=== PATIENT | male | born 1995 | race Caucasian/White ===

== ENCOUNTER 2022-05-30 23:10 | Emergency (ER) | payer BC ==
[~2022-05-30] VITALS: Ht 177.8 cm; Wt 106.6 kg
--- NOTE | 2022-05-30 23:52 | NUR ---
Pt amb to exam room, rodger miller. A&O x'4.
[2022-05-30 23:59] VITALS: BP 128/73
[2022-05-31] MEDS ORDERED: ZOFRAN ODT SL STA
--- NOTE | 2022-05-31 00:12 | ER.PDOC ---
General Chief Complaint: Head Injury Stated Complaint: HEAD INJURY Time seen by MD: 23:33 Source: patient Exam Limitations: no limitations History of Present Illness Initial Comments Patient is a 27-year-old male with no reported past medical history who presents about an hour after a rodeo incident where he injured his head. Patient states that he was thrown off a bull and he landed and hit his head mostly on the right occipital region patient states that he never lost consciousness but did have some nausea and when he stood up he was very dizzy and could not walk straight. Patient denies any other injury or pain elsewhere. Patient states that he has a sore pain on the right occipital region of his head that does not radiate is made worse with palpation and better when nothing is touching it. Patient denies any vomiting but again does have the associated symptoms of mild nausea. History as above Meds and allergies reviewed Past Medical History Medical History: no pertinent history Family History Significant Family History: no pertinent family hx Social History Smoking: non-smoker Alcohol Use: none Drug Use: none Reviewed Nursing Reviewed: Vital Signs, Abn. Noted, Nursing Assessment Review of Systems Constitutional: denies chills, denies fever Eyes: denies blindness, denies blurred vision, denies drainage, denies decreased acuity, denies foreign body sensation, denies inflammation, denies pain, denies photophobia, denies previous injury, denies shadows, denies tunnel vision, denies vision change, denies contact lenses Ears, Nose, Mouth, Throat: denies ear pain, denies ear discharge, denies nose pain, denies nose discharge, denies epistaxis, denies mouth pain, denies mouth swelling, denies loose teeth, denies throat pain, denies throat swelling Respiratory: denies cough, denies orthopnea, denies shortness of breath, denies stridor, denies wheezing Cardiovascular: denies chest pain, denies edema, denies palpitations, denies syncope Gastrointestinal: denies abdominal pain, denies constipation, denies diarrhea; nausea; denies vomiting Genitourinary: denies discharge, denies dysuria Musculoskeletal: denies back pain Skin: denies change in color Psychiatric/Neurological: denies emotional problems; headache Endocrine: denies unexplained weight gain, denies unexplaned weight loss Hematologic/Lymphatic: denies swollen glands Physical Exam General Appearance: Alert, No Apparent Distress, WD/WN Head: Tenderness (To the right occipital region otherwise normal exam) Eye: PERRL, EOMI, No nystagmus ENT: Nml external inspection, Pharynx nml Neck: non-tender, painless ROM, trachea midline Cardiovascular/Respiratory: Regular Rate, Rhythm, No M/R/G, Normal Peripheral Pulses, No JVD, Normal Breath Sounds, No Respiratory Distress Gastrointestinal: Normal Bowel Sounds, No Organomegaly, No Pulsatile Mass, Non Tender, Soft Back: Normal Inspection, No CVA Tenderness, No Vertebral Tenderness Extremities: Normal Range of Motion, Non-Tender, Normal Inspection, No Pedal Edema, No Calf Tenderness, Normal Capillary Refill NEURO/PSYCH: Alert, Oriented x3, Cooperative, Interactive, Mood/affect nml Cranial Nerves: Normal Hearing, Normal Speech, PERRL Coordination/Gait: Normal Finger to Nose, Normal Gait Motor/Sensory: No Motor Deficit, No Sensory Deficit, No Pronator Drift, Negative Babinski's Sign Skin: Normal Color, Warm/Dry Lymphatic: No Adenopathy Cesia Coma Score Best Eye Response: (4) Open Spontaneously Best Verbal Response: (5) Oriented Best Motor Response: (6) Obeys Commands Results/Orders Results/Orders Orders - ADELAIDA LINDQUIST MD Ct Head Wo Contrast (05/31/22 00:00) Xr Chest 1v (05/31/22 00:00) Ondansetron (Zofran Odt) (05/31/22 00:00) Ondansetron (Zofran Odt) (05/31/22 00:21) Vital Signs Date Time Temp Pulse Resp B/P (MAP) Pulse Ox O2 Delivery O2 Flow Rate FiO2 05/31/22 00:14 18 05/31/22 00:14 97.7 96 18 128/73 (91) 98 Room Air* 0 21 05/31/22 00:14 97.7 96 18 05/30/22 23:59 97.7 96 18 98 Administered Medications Medications (Trade) Dose Ordered Sig/Sangita Route PRN Reason Start Time Stop Time Status Last Admin Dose Admin Ondansetron HCl (Zofran Odt) 4 mg OT STAT SL 05/31/22 00:00 05/31/22 00:01 DC 05/31/22 00:24 4 MG Progress Progress Patient here with a head injury at the [place]. May be a slight concussion will need CT imaging to rule out any intracranial or bony abnormality. No other injury present we will also get a chest x-ray just because it is somewhat of d eceleration injury and he was thrown off rapidly. We will provide Zofran for nausea control. But will hold off on pain medication as she already took some TylenolPatient otherwise has a completely normal neuro exam. 0050 - Reassessmentpatient remains completely neuro intact. Tertiary exam was negative we will give ketorolac and discharged with follow-up patient has a primary care provider in [place] he says he can follow-up with next week. Discussed patient not doing any more bull riding or being very cautious as if he does have a concussion a new head injury at this time would be dramatic. Patient voiced understanding ER DEPART Departure Time of Disposition: 00:50 Disposition: 01 HOME / SELF CARE / HOMELESS Impression: Primary Impression: Closed head injury Condition: Stable Patient Instructions: Concussion and Brain Injury, [id number], Head Injury, Adult, [id number] Referrals: PCP,UNKNOWN (PCP) PRIMARY CARE PROVIDER Additional Instructions: As we discussed do not do anything that could cause another head injury until you are cleared by another physician. Please follow-up with your primary care provider within the next week. If you have any new persistent or worsening symptoms or concerns please seek emergent medical attention. Duration or Time Spent with Pa: 30 Problem Qualifiers Primary Impression: Closed head injury Encounter type: initial encounter Qualified Codes: S09.90XA - Unspecified injury of head, initial encounter ADELAIDA LINDQUIST MD May 31, 2022 00:12
[2022-05-31 00:14] VITALS: BP 128/73
--- NOTE | 2022-05-31 00:20 | DIREP ---
PROCEDURE:CHEST 1 VIEW COMPARISON:None. INDICATIONS:trauma FINDINGS: LUNGS/PLEURA:No significant pulmonary parenchymal abnormalities. No effusions. VASCULATURE:Normal. Unremarkable pulmonary vasculature. CARDIAC:Normal. No cardiac silhouette abnormality or cardiomegaly. MEDIASTINUM:Normal. No visible mass or adenopathy. BONES:Normal. No fracture or visible bony lesion. OTHER:Negative. CONCLUSION:Normal examination. Dictated by: Suhail Plunkett DO on 05/31/2022 at 00:18 AM
[2022-05-31] MEDS ORDERED: ZOFRAN ODT ONE (00:21)
--- NOTE | 2022-05-31 00:33 | DIREP ---
PROCEDURE:CT HEAD OR BRAIN W/O CONTRAST COMPARISON:None. INDICATIONS:trauma TECHNIQUE:CT images were created without intravenous contrast. FINDINGS: VENTRICLES:The ventricles are normal in size and configuration. CEREBRUM:Normal cerebral morphology with appropriate jauregui white matter differentiation. CEREBELLUM:Negative. BRAINSTEM:Negative. BASAL CISTERNS:Negative. HEMORRHAGE (Vol L*W*H*.52):No MASS LESION:No ACUTE INFARCT:No SKULL:Normal. SINUSES:Normal. OTHER:None CONCLUSION:Normal examination. Dictated by: Suhail Plunkett DO on 05/31/2022 at 00:30 AM
[2022-05-31] MEDS ORDERED: TORADOL IM STA (00:49)
[2022-05-31] MEDS ORDERED: TORADOL ONE (00:59)
[2022-05-31 01:00] VITALS: BP 121/75
== END 2022-05-31 01:12 | disposition home or self-care (01) ==
LOC: ER 23:10
DX: S09.90XA Unspecified injury of head, initial encounter (principal); W55.22XA Struck by cow, initial encounter; Y93.89 Activity, other specified; Y92.89 Other specified places as the place of occurrence of the external cause; Y99.8 Other external cause status
CPT/HCPCS: 99284; 70450; 71045; 96372; J1885